=== PATIENT | female | born 1965 | race Caucasian/White ===

== ENCOUNTER 2021-07-01 15:31 | Inpatient (IN) | payer MEDICAID, OTHER ==
[~2021-07-01] VITALS: Ht 165.1 cm; Wt 77.1 kg
[2021-07-01] MEDS ORDERED: TELM40TA2 PO (16:56)
[2021-07-01 17:00] LABS: HEMATOCRIT 37.7 % (31.2-41.9); MEAN CORPUSCULAR HEMOGLOBIN 31.4 uug (24.7-32.8); MEAN CORPUSCULAR VOLUME 93.4 fL (75.5-95.3); PLATELET COUNT (AUTO) 189 K/uL (179-408)
[2021-07-01] MEDS ORDERED: CEFTRIAXONE 1 G in IV DEXTROSE 5% 50 ML IV ONE (17:00)
[2021-07-01 17:03] LABS: CREATININE 0.9 mg/dL (0.6-1.3); POTASSIUM 3.6 mmol/L (3.5-5.1)
[2021-07-01 17:09] LABS: BILIRUBIN,TOTAL 0.6 mg/dL (0.2-1.0); TOTAL PROTEIN, SERUM 7.6 g/dL (6.4-8.2)
[2021-07-01] MEDS ORDERED: AZITHROMYCIN 500MG/ D5W 250ML IVPB **ER PYXIS ONLY IV ONE (17:09)
[2021-07-01] MEDS ORDERED: CEFTRIAXONE /D5W 50ML IVPB **ER PYXIS IV ONE (17:09)
--- NOTE | 2021-07-01 17:32 | NUR ---
josh from [facility] called and recieved some updates on the pt.
[2021-07-01] MEDS: AZITHROMYCIN IV 500 MG in IV DEXTROSE 5% 250 ML IV SCH ×2 (17:34→19:05)
[2021-07-01 17:35] LABS: ABG BASE EXCESS -0.3 mmol/L; ABG HCO3 24.1 mmol/L; ABG PCO2 38.5 mmHg (35.0-45.0); ABG PH 7.414 (7.350-7.450); ABG PO2 86.6 mmHg (75.0-100.0); ABG SITE RIGHT RADIAL; ABG TOTAL HEMOGLOBIN 12.5 G/dL (12.0-16.0); COHb 1.2 % (0.5-1.5); MetHb 0.2 % (0.0-1.5); O2Hb 95.3 % (94.0-97.0)
--- NOTE | 2021-07-01 18:37 | NUR ---
pt ambulated to bathroom with steady gait.
[2021-07-01] MEDS ORDERED: SWABABLE VALVE TRANSFER SET EA MC ONE (19:22)
[2021-07-01] MEDS ORDERED: IOHEXOL 300MG/ML 100 ML INFUS..BTL ONE (19:22)
[2021-07-01] MEDS ORDERED: IV NORMAL SALINE 250 ML IV ONE (19:22)
[2021-07-01] MEDS ORDERED: PIPERACILLIN SODIUM/TAZOBACTAM 3.375 G in IV DEXTROSE 5% 50 ML IV ONE (19:45)
--- NOTE | 2021-07-01 19:45 | NUR ---
PT TAKEN DOWN FOR CT.
[2021-07-01] MEDS ORDERED: PIPERACILLIN/TAZOBACTAM/D5W 50 ML IV ONE (19:55)
--- NOTE | 2021-07-01 20:02 | NUR ---
PT RETURNED FROM CT. STABLE CONDITION.
--- NOTE | 2021-07-01 21:01 | NUR ---
NICOLE FROM [facility], STATED PT IS ACCEPTED TO [facility] UNDER DR. DANIELS.
--- NOTE | 2021-07-01 23:15 | NUR ---
PT RESTING COMFORTABLY IN BED, DENIES ANY PAIN/DISCOMFORT. VSS.
[2021-07-02] MEDS ORDERED: ACETAMINOPHEN 325 MG TABLET PO ONE
[2021-07-02] MEDS ORDERED: ACETAMINOPHEN ES 500 MG TABLET ONE (00:01)
--- NOTE | 2021-07-02 03:44 | NUR ---
CALLED [facility] FOR PANEL CALL, DR. HERNANDEZ PAGED.
--- NOTE | 2021-07-02 04:16 | NUR ---
GAVE REPORT TO YECENIA HARMON.
--- NOTE | 2021-07-02 04:17 | NUR ---
Received admission report from ER nurse YECENIA Phillips
--- NOTE | 2021-07-02 04:47 | NUR ---
Patient transported to inpatient medical floor in stable condition.
--- NOTE | 2021-07-02 04:47 | NUR ---
Juana childs in [facility] - 07/02/21 at 0502 by VANDANA Patient transported to inpatient medical floor.
[2021-07-02 04:50] VITALS: BP 144/88
--- NOTE | 2021-07-02 04:50 | NUR ---
Pt. admitted to med surg room 315 , under care of Dr. Hendricks Dx: PNA Belongs List completed
--- NOTE | 2021-07-02 05:00 | NUR ---
Patient arrived in the unit via gurney. Placed comfortably to bed, with assist. Patient awake, alert and oriented x 4, Reoriented to room, call light, TV remote. Denies any pain/discomforts at this time. Able to move all extremities with no difficulty. Routine admission care done. Plan of care initiated.
[2021-07-02] MEDS ORDERED: ONDANSETRON 4 MG/2 ML VIAL IV PRN (06:00)
[2021-07-02] MEDS ORDERED: ZOLPIDEM 5 MG TABLET PO PRN (06:00)
[2021-07-02] MEDS ORDERED: MAGNESIUM HYDROXIDE 30 ML LIQUID UDC PO PRN (06:00)
[2021-07-02] MEDS ORDERED: ACETAMINOPHEN 325 MG TABLET PO PRN (06:00)
[2021-07-02] MEDS ORDERED: Z GUARD REMEDY PASTE 57 GM TUBE TOP PRN (06:00)
[2021-07-02] MEDS: IV 1/2NS 1000 ML 1,000 ML IV PRN ×2 (06:32→23:50)
[2021-07-02] MEDS ORDERED: VANCOMYCIN IV 1,500 MG in IV DEXTROSE 5% 500 ML IV ONE (07:00)
[2021-07-02] MEDS ORDERED: PANTOPRAZOLE SODIUM 40 MG TABLET.DR PO SCH (07:00)
[2021-07-02] MEDS ORDERED: PIPERACILLIN SODIUM/TAZOBACTAM 3.375 G in IV DEXTROSE 5% 50 ML IV SCH (08:00)
[2021-07-02 08:05] VITALS: BP 138/81
--- NOTE | 2021-07-02 08:50 | NUR ---
Received this morning sitting in bed, awake, alert and oriented. IV access infiltrated and removed promptly. Minimal bleeding noted. Denies pain. Comfortable on room air. No sob reported. Bed low and locked. Kept comfortable. Call light within reach. Will continue to monitor.
[2021-07-02] MEDS ORDERED: VANCOMYCIN IV 1,250 MG in IV DEXTROSE 5% 250 ML IV SCH (09:00)
[2021-07-02 10:02] LABS: HEMATOCRIT 34.4 % (31.2-41.9); MEAN CORPUSCULAR HEMOGLOBIN 31.9 uug (24.7-32.8); MEAN CORPUSCULAR VOLUME 93.7 fL (75.5-95.3); PLATELET COUNT (AUTO) 181 K/uL (179-408)
--- NOTE | 2021-07-02 10:50 | NUR ---
Dr. Canchola in to see patient.
[2021-07-02 12:07] VITALS: BP 132/68
[2021-07-02 16:00] VITALS: BP 118/70
[2021-07-02] MEDS: CEFTRIAXONE 1 G in IV DEXTROSE 5% 50 ML IV SCH (16:28)
[2021-07-02] MEDS: PANTOPRAZOLE SODIUM 40 MG TABLET.DR PO SCH (16:28)
[2021-07-02] MEDS: AZITHROMYCIN IV 500 MG in IV DEXTROSE 5% 250 ML IV SCH (17:18)
--- NOTE | 2021-07-02 18:59 | NUR ---
Alert and oriented x4. No respiratory distress. No sob noted. Atb given as ordered. No adverse or allergic reaction noted. Needs attended. Safety maintained.
[2021-07-02 20:20] VITALS: BP 129/74
[2021-07-03 04:31] VITALS: BP 102/54
[2021-07-03] MEDS: PANTOPRAZOLE SODIUM 40 MG TABLET.DR PO SCH ×2 (06:09→16:10)
[2021-07-03 06:21] LABS: HEMATOCRIT 34.4 % (31.2-41.9); MEAN CORPUSCULAR HEMOGLOBIN 31.4 uug (24.7-32.8); MEAN CORPUSCULAR VOLUME 92.9 fL (75.5-95.3); PLATELET COUNT (AUTO) 182 K/uL (179-408)
[2021-07-03 06:49] LABS: CREATININE 0.9 mg/dL (0.6-1.3); MAGNESIUM 2.3 mg/dL (1.8-2.4); PHOSPHOROUS 3.7 mg/dL (2.5-4.9); POTASSIUM 3.9 mmol/L (3.5-5.1)
[2021-07-03 07:01] LABS: THYROID STIMULATING HORMONE 0.501 mIU/mL (0.358-3.740)
[2021-07-03] MEDS ORDERED: TELMISARTAN 20 MG PO SCH (09:00)
[2021-07-03] MEDS ORDERED: VALSARTAN 40 MG TABLET PO SCH (09:00)
[2021-07-03 12:27] VITALS: BP 126/76
[2021-07-03] MEDS ORDERED: AMOX-430 PO (14:38)
[2021-07-03 16:10] VITALS: BP 120/76
[2021-07-03] MEDS: CEFTRIAXONE 1 G in IV DEXTROSE 5% 50 ML IV SCH (16:10)
[2021-07-03] MEDS: AZITHROMYCIN IV 500 MG in IV DEXTROSE 5% 250 ML IV SCH (17:02)
--- NOTE | 2021-07-03 19:05 | NUR ---
dc orders received noted and carried out,dc heplock per md orders.dc instruction given to the pt pt sais she will follow up with pcp in one week.pt left the facility via private car in stable condition
== END 2021-07-03 19:05 | disposition home or self-care (01) | DRG 143 ==
LOC: ER 15:31 → TELE3 07-02 04:42 → MEDSURG3 07-02 05:06
PROVIDERS: ADMIT Internal Medicine; ATTEND Internal Medicine
DX: J95.89 Other postprocedural complications and disorders of respiratory system, not elsewhere classified (principal); J69.0 Pneumonitis due to inhalation of food and vomit; I10 Essential (primary) hypertension; Z20.822 Contact with and (suspected) exposure to COVID-19; K27.9 Peptic ulcer, site unspecified, unspecified as acute or chronic, without hemorrhage or perforation; R09.02 Hypoxemia; Y84.8 Other medical procedures as the cause of abnormal reaction of the patient, or of later complication, without mention of misadventure at the time of the procedure; Y73.8 Miscellaneous gastroenterology and urology devices associated with adverse incidents, not elsewhere classified; Y92.89 Other specified places as the place of occurrence of the external cause; R53.1 Weakness
CPT/HCPCS: 36415; 36600; 71045; 83735; 84100; 84443; 85025; 86140; 87040; 93005; A4663; A9150; G0378; J0456; J0696; J2543; J3370; J3490; J7050; J7060; Q9967